=== PATIENT | male | born 1950 | race Caucasian/White ===

== ENCOUNTER 2017-01-23 08:38 | Inpatient (IN) | payer MEDICARE, OTHER ==
[~2017-01-23 08:38] MED LIST: Lidocaine 1%/Sod Bicarbonate in NS 8.4% 1 ML Syringe IV PRN; Midazolam 1 MG/ML 2 ML SDV ONE; Propofol 200 MG/20 ML SDV ONE; Sodium Chloride 0.9% 10 ML Syringe FLUSH PRN
--- NOTE | 2017-01-23 09:23 | PCM.PREANE ---
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 Respiratory: Reports: no symptoms Cardiovascular: Reports: no symptoms GI: Reports: no symptoms Other: Reports: thyroid problems - PHYSICAL ASSESSMENT HR: 71 O2 Sat by Pulse Oximetry: 98 RR: 16 BP: 145/78 Temp: 97.7 C ASA Class: 2 Mental Status: alert & oriented x3 Airway Class: Mallampati = 1 Dentition: Reports: normal dentition Thyro-Mental Finger Breadths: 3 Mouth Opening Finger Breadths: 3 ROM/Head Extension: full Respiratory Status: lungs clear to auscultation bilaterally Cardiovascular Status: regular rate & rhythm, normal S1, S2, no murmur, blood pressure WNL - LAB Values: Laboratory Last Values MRSA (PCR) Negative 01/11/17 16:10 - ALLERGIES Allergies/Adverse Reactions: Allergies Allergy/AdvReac Type Severity Reaction Status Date / Time No Known Allergies Allergy Verified 01/20/17 14:27 - ANESTHESIA PLAN Preop Beta Scar: Yes Beta Scar: Metoprolol Beta-Scar Last Dose Date: 01/23/17 Beta-Scar Last Dose Time: 06:30 Anesthesia Type Planned: spinal - ACKNOWLEDGEMENTS Pt an appropriate candidate for the planned anesthesia: Yes Alternatives and risks of anesthesia discussed w pt/guardian: Yes Pt/Guardian understands and agree with anesthesia plan: Yes PreAnesthesia Questionnaire HEENT History: Reports: None, Other (see below) Other HEENT History: L eye floater, L retinal tear, laser eye surgery Cardiovascular History: Reports: CAD, High cholesterol, Hypertension, PTCA, Stents (angioplasty 2007), Other (see below) Other Cardiovascular History: aortic stenosis and insufficiency Respiratory History: Reports: None Gastrointestinal History: Reports: Gastritis (past hx) Genitourinary History: Reports: Other (see below) Other Genitourinary History: renal colic, elevated PSA, prostate biopsy LOADER UNLOADER History: Reports: None Musculoskeletal History: Reports: Other (see below) Other Musculoskeletal History: r knee pain Neurological History: Reports: None Psychiatric History: Reports: None Endocrine/Metabolic History: Reports: Hypothyroidism Hematologic History: Reports: None Immunologic History: Reports: None Oncologic (Cancer) History: Reports: None Dermatologic History: Reports: None - Infectious Disease History Infectious Disease History: Reports: None - Past Surgical History Head Surgeries/Procedures: Reports: None Cardiovascular Surgical History: Reports: Other (see below) (angioplasty 2008 no complications with any previous anesthetics) GI Surgical History: Reports: Colonoscopy, Other (see below) Other GI Surgeries/Procedures: sigmoidoscopy Female Surgical History: Male Surgical History: Reports: Prostate Biopsy, Vasectomy Other Male Surgeries/Procedures: lithotripsy Musculoskeletal Surgical History: Reports: Other (see below) Other Musculoskeletal Surgeries/Procedures:: R knee arthroscopy - Past Imaging History Past Imaging History: Reports: None - SUBSTANCE USE Smoking Status *Q: Former Smoker Recreational Drug Use History: No - HOME MEDS Home Medications: Home Meds Aspirin/Calcium Carbonate/Mag [Aspirin Buffered 325 mg Tab] 162 mg PO DAILY 02/03 [History] Ergocalciferol (Vitamin D2) [Vitamin D] 1 tab PO DAILY 01/20/17 [History] Levothyroxine [Synthroid] 1 tab PO DAILY 01/20/17 [History] Losartan/Hydrochlorothiazide [Losartan-HCTZ 100-25 MG] 1 tab PO DAILY 01/20/17 [ History] Metoprolol Succinate 1 tab PO DAILY 01/20/17 [History] Nitroglycerin [Nitrostat] 1 tab SL ASDIRECTED PRN 01/20/17 [History] Turmeric Root Extract [Turmeric] 1 cap PO DAILY 01/20/17 [History] atorvaSTATin [Lipitor] 80 mg PO DAILY 01/20/17 [History] - CURRENT (IN HOUSE) MEDS Current Meds: Current Medications Bisacodyl (Dulcolax) 5 mg PO DAILY PRN PRN Reason: Constipation Morphine Sulfate 8 mg/Epinephrine HCl 0.3 mg/Cefuroxime Sodium 750 mg/Ketorolac Tromethamine 30 mg/Sodium Chloride 27.9 ml 0 mg .XX ONETIME ONE Stop: 01/23/17 10:16 Cyclobenzaprine HCl (Flexeril) 10 mg PO TID PRN PRN Reason: Spasms Diphenhydramine HCl (Benadryl) 25 mg IVPUSH Q4H PRN PRN Reason: Nausea Docusate Sodium (Colace) 100 mg PO BID [facility] Famotidine (Pepcid) 20 mg PO Q12H [facility] Lactated Ringer's (Ringers, Lactated) 1,000 mls @ 125 mls/hr IV ASDIRECTED [facility] [place] [place] Cefazolin Sodium/Dextrose 2 gm (/ Premix) 50 mls @ 100 mls/hr IV Q8H [facility] Stop: 01/23/17 23:14 Ketorolac Tromethamine (Toradol) 15 mg IVPUSH Q8H PRN PRN Reason: Pain Stop: 01/23/17 13:01 Lidocaine/Sodium Bicarbonate (Buffered Lidocaine 1% In Ns 8.4%) 0.25 ml IV ONETIME PRN PRN Reason: Prior to IV Start Stop: 01/23/17 18:00 Magnesium Hydroxide (Milk Of Magnesia) 30 ml PO BID PRN PRN Reason: Constipation Morphine Sulfate (Morphine) 2 mg IVPUSH Q2H PRN PRN Reason: Breakthrough Pain Multivitamins (Thera) 1 each PO WITHBREAKFAST [facility] Naloxone HCl (Narcan) 0.1 mg IVPUSH Q5M PRN PRN Reason: Oversedation Stop: 01/23/17 12:16 Ondansetron HCl (Zofran) 4 mg IVPUSH Q6H PRN PRN Reason: Nausea/Vomiting Oxycodone/Acetaminophen (Percocet 325-5 Mg) 1 - 2 tab PO Q4H PRN PRN Reason: Pain Rivaroxaban (Xarelto) 10 mg PO DAILY [facility] Senna (Senna) 8.6 mg PO BID PRN PRN Reason: Constipation Sodium Chloride (Saline Flush) 10 ml FLUSH ASDIRECTED PRN PRN Reason: Keep Vein Open Discontinued Medications Midazolam HCl (Versed 1 Mg/Ml) Confirm Administered Dose 2 mg .ROUTE .STK-MED ONE Stop: 01/23/17 08:22 Propofol (Diprivan 20 Ml) Confirm Administered Dose 200 mg .ROUTE .STK-MED ONE Stop: 01/23/17 08:20
[2017-01-23] MEDS: Lactated Ringers 1,000 ML IV SCH ×2 (09:30→12:18)
[2017-01-23] MEDS ORDERED: Morphine PF 10 MG/10 ML SDV ONE (09:39)
[2017-01-23] MEDS ORDERED: ceFAZolin 1 GM Vial ONE ×2 (09:40)
[2017-01-23] MEDS: Bupivacaine 0.25% 30 ML SDV ONE ×2 (10:35→11:16)
[2017-01-23] MEDS ORDERED: Ondansetron 4 MG/2 ML SDV IVPUSH PRN ×2 (10:35→13:00)
[2017-01-23] MEDS ORDERED: ePHEDrine 50 MG/ML SDV IVPUSH PRN (10:35)
[2017-01-23] MEDS: ceFAZolin 1 GM Vial ONE ×2 (10:36→11:11)
[2017-01-23] MEDS: Iodine/Sodium Iodide 2% Tincture 30 ML Bottle ONE ×2 (10:36→11:07)
[2017-01-23] MEDS: Morphine 8 MG, EPINEPHrine 0.3 MG, Cefuroxime 750 MG, Ketorolac 30 MG, Sodium Chloride ... ONE ×15 (10:37→19:33)
[2017-01-23] MEDS ORDERED: Propofol 200 MG/20 ML SDV ONE (10:43)
[2017-01-23] MEDS ORDERED: Ondansetron 4 MG/2 ML SDV ONE (10:52)
[2017-01-23] MEDS ORDERED: Lactated Ringers 1,000 ML ONE (10:55)
[2017-01-23] MEDS ORDERED: Nitroglycerin 0.4 MG Tab.SL SL PRN (11:13)
--- NOTE | 2017-01-23 11:34 | PCM.OPNOTE ---
- General Post-Op/Procedure Note Date of Surgery/Procedure: 01/23/17 Operative Procedure(s): right total knee arthroplasty Pre Op Diagnosis: right knee osteoarthrosis Post-Op Diagnosis: Same Anesthesia Technique: Local, MAC, Spinal Primary Surgeon: El López Anesthesia Provider: Martina Michelle Funeral Service Manager: Leanna Pena Funeral Service Manager: Neida Buck EBL in mLs: 150 Complications: None Condition: Good
[2017-01-23] MEDS ORDERED: HYDROmorphone 0.5 MG/0.5 ML Syringe IVPUSH PRN (11:45)
[2017-01-23] MEDS ORDERED: fentaNYL 100 MCG/2 ML SDV IVPUSH PRN (11:45)
--- NOTE | 2017-01-23 11:53 | PCM.POSTAN ---
POST ANESTHESIA ASSESSMENT - MENTAL STATUS Mental Status: alert, oriented - VITAL SIGNS Pulse Rate: 80 SaO2: 95 Resp Rate: 16 Blood Pressure: 115/45 Temperature: 98.0 C - RESPIRATORY Respiratory Status: respiratory rate WNL, airway patent, O2 saturation stable - CARDIOVASCULAR CV Status: pulse rate WNL, blood pressure stable - GASTROINTESTINAL GI Status: no symptoms - PAIN Pain Score: 0 - POST OP HYDRATION Hydration Status: adequate & stable
[2017-01-23] MEDS ORDERED: Naloxone 0.4 MG/ML SDV IVPUSH PRN (12:00)
--- NOTE | 2017-01-23 12:43 | CR ---
Right knee: AP and lateral views of the right knee were obtained. Comparison: No previous study. Knee prosthesis is seen. Components are aligned. Underlying bony structures are intact. Soft tissue air noted from the surgical procedure. Lucent line which is felt compatible with artifact noted on the lateral view within the proximal fibula. Impression: 1. Satisfactory radiographic appearance of recently placed right knee prosthesis. Diagnostic code #2
[2017-01-23] MEDS ORDERED: Ketorolac 15 MG/ML SDV IVPUSH PRN (13:00)
[2017-01-23] MEDS ORDERED: Morphine 2 MG/ML Syringe IVPUSH PRN (13:00)
[2017-01-23] MEDS ORDERED: diphenhydrAMINE 50 MG/ML SDV IVPUSH PRN (13:00)
--- NOTE | 2017-01-23 14:06 | PCM48HPAN ---
Post Anesthesia Note - EVALUATION WITHIN 48HRS OF ANESTHETIC Vital Signs in Normal Range: Yes Patient Participated in Evaluation: Yes Respiratory Function Stable: Yes Airway Patent: Yes Cardiovascular Function Stable: Yes Hydration Status Stable: Yes Pain Control Satisfactory: Yes Nausea and Vomiting Control Satisfactory: Yes Mental Status Recovered: Yes - COMMENTS/OBSERVATIONS Free Text/Narrative:: report obtained from RN as patient discharged from PACU
--- NOTE | 2017-01-23 14:11 | PCM.CONSN ---
- General Info Date of Service: 01/23/17 Admission Dx/Problem (Free Text): 66 year old male post op without significant pain or nausea. Has significant CAD history as noted Functional Status: Reports: pain controlled, tolerating diet, urinating - Review of Systems General: Reports: no symptoms HEENT: Reports: no symptoms Pulmonary: Reports: no symptoms Cardiovascular: Reports: no symptoms Gastrointestinal: Reports: No symptoms Genitourinary: Reports: no symptoms Musculoskeletal: Reports: no symptoms Skin: Reports: no symptoms Neurological: Reports: no symptoms Psychiatric: Reports: no symptoms - Patient Data Vitals - most recent: Last Vital Signs Temp 36.2 C 01/23/17 13:20 Pulse 55 L 01/23/17 13:20 Resp 16 01/23/17 13:20 BP 98/61 01/23/17 13:20 Pulse Ox 96 01/23/17 13:20 Weight - most recent: 77.111 kg I&O - last 24 hours: Intake & Output 01/22/17 01/23/17 01/23/17 22:59 06:59 14:59 Intake Total 450 Output Total 120 Balance 330 Med Orders - Current: Current Medications Bisacodyl (Dulcolax) 5 mg PO DAILY PRN PRN Reason: Constipation Cyclobenzaprine HCl (Flexeril) 10 mg PO TID PRN PRN Reason: Spasms Diphenhydramine HCl (Benadryl) 25 mg IVPUSH Q4H PRN PRN Reason: Nausea Last Admin: 01/23/17 09:29 Dose: 25 mg Docusate Sodium (Colace) 100 mg PO BID [facility] Famotidine (Pepcid) 20 mg PO Q12H [facility] Hydrochlorothiazide (Hydrochlorothiazide) 25 mg PO DAILY [facility] Cefazolin Sodium/Dextrose 2 gm (/ Premix) 50 mls @ 100 mls/hr IV Q8H [facility] Stop: 01/24/17 10:14 Levothyroxine Sodium (Synthroid) 100 mcg PO DAILY [facility] Losartan Potassium (Cozaar) 100 mg PO DAILY [facility] Magnesium Hydroxide (Milk Of Magnesia) 30 ml PO BID PRN PRN Reason: Constipation Metoprolol Succinate (Toprol Xl) 25 mg PO DAILY [facility] Morphine Sulfate (Morphine) 2 mg IVPUSH Q2H PRN PRN Reason: Breakthrough Pain Multivitamins (Thera) 1 each PO WITHBREAKFAST [facility] Nitroglycerin (Nitrostat) 0.4 mg SL ASDIRECTED PRN PRN Reason: Chest Pain Ondansetron HCl (Zofran) 4 mg IVPUSH Q6H PRN PRN Reason: Nausea/Vomiting Oxycodone/Acetaminophen (Percocet 325-5 Mg) 1 - 2 tab PO Q4H PRN PRN Reason: Pain Ergocalciferol ( Vitamin D2) [Vitamin D] 1 Tab 0 each PO DAILY [facility] Rivaroxaban (Xarelto) 10 mg PO DAILY [facility] Rosuvastatin Calcium (Crestor) 20 mg PO DAILY [facility] Senna (Senna) 8.6 mg PO BID PRN PRN Reason: Constipation Sodium Chloride (Saline Flush) 10 ml FLUSH ASDIRECTED PRN PRN Reason: Keep Vein Open Discontinued Medications Bupivacaine HCl (Marcaine 0.25%) Confirm Administered Dose 30 ml .ROUTE .STK- MED ONE Stop: 01/23/17 09:13 Last Admin: 01/23/17 11:16 Dose: 30 ml Cefazolin Sodium (Ancef) Confirm Administered Dose 2 gm .ROUTE .STK-MED ONE Stop: 01/23/17 09:13 Last Admin: 01/23/17 11:11 Dose: 2 gm Cefazolin Sodium (Ancef) Confirm Administered Dose 1 gm .ROUTE .STK-MED ONE Stop: 01/23/17 09:41 Cefazolin Sodium (Ancef) Confirm Administered Dose 1 gm .ROUTE .STK-MED ONE Stop: 01/23/17 09:41 Morphine Sulfate 8 mg/Epinephrine HCl 0.3 mg/Cefuroxime Sodium 750 mg/Ketorolac Tromethamine 30 mg/Sodium Chloride 27.9 ml 0 mg .XX ONETIME ONE Stop: 01/23/17 10:16 Last Admin: 01/23/17 11:15 Dose: 788.3 mg Ephedrine Sulfate (Ephedrine Sulfate) 5 mg IVPUSH ASDIRECTED PRN PRN Reason: Hypotension Stop: 01/23/17 18:00 Fentanyl (Sublimaze) 50 mcg IVPUSH Q5M PRN PRN Reason: Pain Stop: 01/23/17 12:01 Hydromorphone HCl (Dilaudid) 0.5 mg IVPUSH Q15M PRN PRN Reason: severe pain Stop: 01/23/17 12:01 Lactated Ringer's (Ringers, Lactated) 1,000 mls @ 125 mls/hr IV ASDIRECTED [facility] Last Admin: 01/23/17 12:18 Dose: 125 mls/hr Lactated Ringer's (Ringers, Lactated) Confirm Administered Dose 1,000 mls @ as directed .ROUTE .STK-MED ONE Stop: 01/23/17 10:56 Iodine (Iodine 2% Mild Tincture) Confirm Administered Dose 30 ml .ROUTE .STK- MED ONE Stop: 01/23/17 09:13 Last Admin: 01/23/17 11:07 Dose: 18 ml Ketorolac Tromethamine (Toradol) 15 mg IVPUSH Q8H PRN PRN Reason: Pain Stop: 01/23/17 13:01 Lidocaine/Sodium Bicarbonate (Buffered Lidocaine 1% In Ns 8.4%) 0.25 ml IV ONETIME PRN PRN Reason: Prior to IV Start Stop: 01/23/17 18:00 Midazolam HCl (Versed 1 Mg/Ml) Confirm Administered Dose 2 mg .ROUTE .STK-MED ONE Stop: 01/23/17 08:22 Morphine Sulfate (Duramorph Pf) Confirm Administered Dose 10 mg .ROUTE .STK-MED ONE Stop: 01/23/17 09:40 Naloxone HCl (Narcan) 0.1 mg IVPUSH Q5M PRN PRN Reason: Oversedation Stop: 01/23/17 12:16 Ondansetron HCl (Zofran) 4 mg IVPUSH ONETIME PRN PRN Reason: Nausea/Vomiting Stop: 01/23/17 18:00 Ondansetron HCl (Zofran) Confirm Administered Dose 4 mg .ROUTE .STK-MED ONE Stop: 01/23/17 10:53 Propofol (Diprivan 20 Ml) Confirm Administered Dose 200 mg .ROUTE .STK-MED ONE Stop: 01/23/17 08:20 Propofol (Diprivan 20 Ml) Confirm Administered Dose 200 mg .ROUTE .STK-MED ONE Stop: 01/23/17 10:44 Tranexamic Acid (Cyklokapron) Confirm Administered Dose 1,000 mg .ROUTE .STK- MED ONE Stop: 01/23/17 09:13 Last Admin: 01/23/17 11:23 Dose: 1,000 mg - Exam Quality Assessment: urine catheter, DVT prophylaxis General: alert, oriented, cooperative, no acute distress HEENT: Pupils equal, Pupils reactive, EOMI Neck: supple, trachea midline, no JVD Lungs: Normal respiratory effort Cardiovascular: regular rate, regular rhythm Abdomen: bowel sounds present, soft, no tenderness, no distension (Male) Exam: Deferred Back Exam: normal inspection Extremities: normal pulses Skin: warm Wound/Incisions: dressing dry and intact Neurological: no new focal deficit, normal speech Psy/Mental Status: alert, normal affect, normal mood Consult PN Assessment/Plan POD#: 0 Procedures: Procedures MR-STAPH DNA AMP PROBE (10/17/16) (1) Osteoarthritis SNOMED Code(s): 734799772 Code(s): M19.90 - UNSPECIFIED OSTEOARTHRITIS, UNSPECIFIED SITE (2) Hypertension SNOMED Code(s): 40408641 Code(s): I10 - ESSENTIAL (PRIMARY) HYPERTENSION (3) CAD (coronary artery disease), [place] coronary artery SNOMED Code(s): 6000005867139 Code(s): I25.10 - ATHSCL HEART DISEASE OF [place] CORONARY ARTERY W/O ANG PCTRS (4) Hypothyroid SNOMED Code(s): 87372120 Code(s): E03.9 - HYPOTHYROIDISM, UNSPECIFIED Problem List Initiated/Reviewed/Updated: Yes Plan: Impression: Spinal with Mac, post op right total knee arthroplasty Right knee osteoarthrits Chronic Mild Mild AI CAD/ PCI LAD with BMS ('08); RCA with JOSSELINE ('09) HTN Hypothyroidism Hyperlipidemia History of Gastritis Plan: Anti-emetics Pain meds DVT prophylaxis per ortho PT/OT recommendation post op Home meds
[2017-01-23] MEDS ORDERED: Cyclobenzaprine 10 MG Tab PO PRN (15:00)
[2017-01-23] MEDS ORDERED: Lactated Ringers 1,000 ML IV SCH (16:15)
[2017-01-23] MEDS: ceFAZolin 2 GM in Premix Bag 1 BAG IV SCH (17:42)
[2017-01-23] MEDS ORDERED: Bisacodyl 5 MG Tab PO PRN (18:00)
[2017-01-23] MEDS: Losartan 100 MG Tab PO SCH (18:02)
[2017-01-23] MEDS: Hydrochlorothiazide 25 MG Tab PO SCH (18:03)
[2017-01-23] MEDS ORDERED: Lactated Ringers 500 ML IV ONE (18:34)
[2017-01-23] MEDS: Acetaminophen/oxyCODONE 325-5 MG Tab PO PRN (18:42)
--- NOTE | 2017-01-23 19:46 | OR ---
DATE OF OPERATION: 01/23/2017 SURGEON: El López MD OPERATION PERFORMED: Right total knee arthroplasty. PREOPERATIVE DIAGNOSIS: Right knee osteoarthrosis. POSTOPERATIVE DIAGNOSIS: Right knee osteoarthrosis. ANESTHESIA: Local MAC with spinal. ANESTHESIA PROVIDER: Martina Michelle CRNA DOCTOR OF AUDIOLOGY: Leanna Buck ESTIMATED BLOOD LOSS: 150 mL. COMPLICATIONS: None. CONDITION: Stable. IMPLANTS: 1. Kanaranzi size 5 PS femur. 2. Valarie size 4 [place] tibial baseplate. 3. Kanaranzi size 9 mm PS X3 polyethylene. 4. Kanaranzi 32 x 10 mm asymmetric patella. DESCRIPTION OF PROCEDURE: The patient was identified in the preop holding area. Proper site was marked and identified by the surgeon. The patient was taken back to the operating theater. After adequate anesthesia, the patient's right lower extremity had a nonsterile tourniquet applied and it was then sterilely prepped and draped in the usual sterile fashion. OR timeout was performed. The patient received 2 g IV Ancef. At this time, right lower extremity was exsanguinated. Tourniquet was insufflated to 300 mmHg. Standard medial parapatellar incision was made. Medial parapatellar arthrotomy was created. Deep fibers of the MCL were raised and anterior fat pad was resected. At this time, attention was turned to the patella. Patella measured 24, it was resected to a 14 for a 32 x 10 mm patella. Drill holes were then drilled and found to be in adequate position. The drill was then drilled in the distal femur and the intramedullary distal femoral cutting guide was then placed. 8 mm was resected off the distal femur and was found to be an adequate resection. Sizing guide was placed. It was found to be a size 5 PS femur that was shown on the implant record at the beginning of this dictation. The drill holes were drilled for the epicondylar axis using Whitesides line and epicondyles as reference. At this time, the 4-in-1 cutting block was placed. An anterior posterior and anterior and posterior chamfer cuts were then completed. The correct size box cut was then placed and the box cut was completed and found to be an adequate resection. Attention was turned to the tibia. The posterior medial lateral retractors were placed. The extramedullary tibial guide was placed. It was placed in the old footprint of the ACL. It was aligned with the center of the ankle and 0 degrees of slope, 9 mm was then resected off the unaffected side. There was found to be an acceptable reduction. At this time, posterior osteophytes were removed along with medial and lateral meniscus. A trial implant was placed with a correct sized tibia that was mentioned at the beginning of the dictation. A 9 mm trial spacer and 9 mm polyethylene was then placed. The patient's knee was brought through range of motion. The patella was tracking centrally and was stable to varus and valgus stress. Alignment was found to be roughly at 0 degrees. At this time, cement was mixed on the back table. The tibia was stamped and drilled in proper rotation. All cut surfaces were irrigated with pulse lavage irrigation with Ancef and then completely dried. Once this was completed, then the cement was ready. The universal tibial base plate was cemented in place. Next, the 5 PS femur cemented into place and the PS X3 polyethylene was placed. The patient's knee was brought into full extension. Excess cement was removed. The patella was then cemented in place at this time. Tourniquet was deflated. One liter dilute Betadine solution was irrigated through the knee along with 3 L of pulse lavage irrigation with Ancef. Periarticular injection was then completed. The patient's knee was brought through a range of motion. Once the cement had time to set up and it was found to be stable to varus valgus stress, the patella was tracking centrally with full range of motion. At this time, a #2 barbed suture was used for closure of the medial parapatellar arthrotomy. Topical tranexamic acid was placed. 2-0 Vicryl was used subcutaneously, a running 3-0 Monocryl was used subcuticularly. The patient tolerated the procedure well and was sent to the PACU in stable condition. IRA /[id number] ELMER
[2017-01-23] MEDS: Famotidine 20 MG Tab PO SCH (20:10)
[2017-01-23] MEDS: Docusate Sodium 100 MG Cap PO SCH (20:10)
[2017-01-23] MEDS ORDERED: Magnesium Hydroxide 400 MG/5 ML Susp 30 ML Cup PO PRN (21:00)
[2017-01-23] MEDS ORDERED: Sennosides 8.6 MG Tab PO PRN (21:00)
[2017-01-23] MEDS: Tamsulosin 0.4 MG Cap.ER PO SCH (21:04)
[2017-01-24] MEDS: ceFAZolin 2 GM in Premix Bag 1 BAG IV SCH ×2 (00:47→09:04)
[2017-01-24] MEDS: Acetaminophen/oxyCODONE 325-5 MG Tab PO PRN ×4 (02:24→15:48)
[2017-01-24] MEDS ORDERED: Multivitamins,Therapeutic Tab PO SCH (07:00)
[2017-01-24] MEDS: Tamsulosin 0.4 MG Cap.ER PO SCH (08:57)
[2017-01-24] MEDS: Hydrochlorothiazide 25 MG Tab PO SCH (08:58)
[2017-01-24] MEDS: Losartan 100 MG Tab PO SCH (08:58)
[2017-01-24] MEDS: Docusate Sodium 100 MG Cap PO SCH (08:59)
[2017-01-24] MEDS: Famotidine 20 MG Tab PO SCH (08:59)
[2017-01-24] MEDS ORDERED: Rivaroxaban 10 MG Tab PO SCH (09:00)
[2017-01-24] MEDS ORDERED: Metoprolol Succinate 25 MG Tab.ER PO SCH (09:00)
[2017-01-24] MEDS ORDERED: Levothyroxine 100 MCG Tab PO SCH (09:00)
[2017-01-24] MEDS ORDERED: Rosuvastatin 10 MG Tab PO SCH (09:00)
[2017-01-24] MEDS ORDERED: ERGOCALCIFEROL PO SCH (09:00)
[2017-01-24 11:42] VITALS: BP 124/65
--- NOTE | 2017-01-24 13:02 | PCM.CONSN ---
- General Info Date of Service: 01/24/17 Admission Dx/Problem (Free Text): POD #[address] López Doing well; pain under good control; up and moving with PT Urinary retention requiring straight cath x 1, flomax started, fluid bolus given last evening VSS Labs stable; hgb 10.9 today Plans for dc home later today Functional Status: Reports: pain controlled, tolerating diet, ambulating. Denies: urinating (retention/ required straight cath x 1 today) - Review of Systems General: Reports: no symptoms HEENT: Reports: no symptoms Pulmonary: Reports: no symptoms Cardiovascular: Reports: no symptoms Gastrointestinal: Reports: No symptoms Genitourinary: Reports: retention Musculoskeletal: Reports: leg pain Skin: Reports: no symptoms Neurological: Reports: no symptoms Psychiatric: Reports: no symptoms - Patient Data Vitals - most recent: Last Vital Signs Temp 99.5 F 01/24/17 11:04 Pulse 79 01/24/17 11:04 Resp 16 01/24/17 11:04 BP 124/65 01/24/17 11:04 Pulse Ox 98 01/24/17 11:04 Weight - most recent: 185 lb 1.6 oz I&O - last 24 hours: Intake & Output 01/23/17 01/24/17 01/24/17 22:59 06:59 14:59 Intake Total 1790 950 200 Output Total 102 200 850 Balance 1688 750 -650 Lab Results last 24 hrs: Laboratory Results - last 24 hr 01/24/17 01/24/17 Range/Units 05:54 05:54 WBC 8.18 (4.23-9.07) K/mm3 RBC 3.95 L (4.63-6.08) M/mm3 Hgb 10.9 L (13.7-17.5) gm/L Hct 34.3 L (40.1-51.0) % MCV 86.8 (79.0-92.2) fl MCH 27.6 (25.7-32.2) pg MCHC 31.8 L (32.2-35.5) g/dl RDW Std Deviation 41.8 (35.1-43.9) fL Plt Count 159 L (163-337) K/mm3 MPV 10.5 (9.4-12.3) fl Neut % (Auto) 69.7 H (34.0-67.9) % Lymph % (Auto) 13.3 L (21.8-53.1) % [place] % (Auto) 13.0 H (5.3-12.2) % Eos % (Auto) 3.5 (0.8-7.0) Baso % (Auto) 0.4 (0.1-1.2) % Neut # 5.70 H (1.78-5.38) K/mm3 Lymph # 1.09 L (1.32-3.57) K/mm3 [place] # 1.06 H (0.30-0.82) K/mm3 Eos # 0.29 (0.04-0.54) K/mm3 Baso # 0.03 (0.01-0.08) K/mm3 Sodium 136 (136-145) mEq/L Potassium 4.5 (3.5-5.1) mEq/L Chloride 103 (98-107) mEq/L Carbon Dioxide 28 (21-32) mEq/L Anion Gap 9.5 (5-15) BUN 22 H (7-18) mg/dL Creatinine 0.9 (0.7-1.3) mg/dL Est Cr Clr Drug Dosing 71.87 mL/min Estimated GFR (MDRD) > 60 (>60) mL/min BUN/Creatinine Ratio 24.4 H (14-18) Glucose 104 (80-115) mg/dL Calcium 8.4 L (8.5-10.1) mg/dL Total Bilirubin 0.6 (0.2-1.0) mg/dL AST 21 (15-37) U/L ALT 22 (16-63) U/L Alkaline Phosphatase 58 (46-116) U/L Total Protein 5.7 L (6.4-8.2) g/dl Albumin 2.9 L (3.4-5.0) g/dl Globulin 2.8 gm/dL Albumin/Globulin Ratio 1.0 (1-2) Med Orders - Current: Current Medications Bisacodyl (Dulcolax) 5 mg PO DAILY PRN PRN Reason: Constipation Cyclobenzaprine HCl (Flexeril) 10 mg PO TID PRN PRN Reason: Spasms Diphenhydramine HCl (Benadryl) 25 mg IVPUSH Q4H PRN PRN Reason: Nausea Last Admin: 03/06/17 09:29 Dose: 25 mg Docusate Sodium (Colace) 100 mg PO BID [facility] Last Admin: 01/24/17 08:59 Dose: 100 mg Famotidine (Pepcid) 20 mg PO Q12H [facility] Last Admin: 01/24/17 08:59 Dose: 20 mg Hydrochlorothiazide (Hydrochlorothiazide) 25 mg PO DAILY [facility] Last Admin: 01/24/17 08:58 Dose: 25 mg Levothyroxine Sodium (Synthroid) 100 mcg PO DAILY [facility] Last Admin: 01/24/17 08:58 Dose: 100 mcg Losartan Potassium (Cozaar) 100 mg PO DAILY [facility] Last Admin: 01/24/17 08:58 Dose: 100 mg Magnesium Hydroxide (Milk Of Magnesia) 30 ml PO BID PRN PRN Reason: Constipation Metoprolol Succinate (Toprol Xl) 25 mg PO DAILY [facility] Last Admin: 01/24/17 08:56 Dose: 25 mg Morphine Sulfate (Morphine) 2 mg IVPUSH Q2H PRN PRN Reason: Breakthrough Pain Multivitamins (Thera) 1 each PO WITHBREAKFAST [facility] Last Admin: 01/24/17 07:43 Dose: 1 each Nitroglycerin (Nitrostat) 0.4 mg SL ASDIRECTED PRN PRN Reason: Chest Pain Ondansetron HCl (Zofran) 4 mg IVPUSH Q6H PRN PRN Reason: Nausea/Vomiting Oxycodone/Acetaminophen (Percocet 325-5 Mg) 1 - 2 tab PO Q4H PRN PRN Reason: Pain Last Admin: 01/24/17 11:38 Dose: 2 tab Ergocalciferol ( Vitamin D2) [Vitamin D] 1 Tab 0 each PO DAILY [facility] Last Admin: 01/24/17 09:19 Dose: Not Given Rivaroxaban (Xarelto) 10 mg PO DAILY [facility] Last Admin: 01/24/17 08:57 Dose: 10 mg Rosuvastatin Calcium (Crestor) 20 mg PO DAILY [facility] Last Admin: 01/24/17 09:19 Dose: Not Given Senna (Senna) 8.6 mg PO BID PRN PRN Reason: Constipation Sodium Chloride (Saline Flush) 10 ml FLUSH ASDIRECTED PRN PRN Reason: Keep Vein Open Tamsulosin HCl (Flomax) 0.4 mg PO DAILY [facility] Last Admin: 01/24/17 08:57 Dose: 0.4 mg Discontinued Medications Bupivacaine HCl (Marcaine 0.25%) Confirm Administered Dose 30 ml .ROUTE .STK- MED ONE Stop: 01/23/17 09:13 Last Admin: 01/23/17 11:16 Dose: 30 ml Cefazolin Sodium (Ancef) Confirm Administered Dose 2 gm .ROUTE .STK-MED ONE Stop: 01/23/17 09:13 Last Admin: 01/23/17 11:11 Dose: 2 gm Cefazolin Sodium (Ancef) Confirm Administered Dose 1 gm .ROUTE .STK-MED ONE Stop: 01/23/17 09:41 Cefazolin Sodium (Ancef) Confirm Administered Dose 1 gm .ROUTE .STK-MED ONE Stop: 01/23/17 09:41 Morphine Sulfate 8 mg/Epinephrine HCl 0.3 mg/Cefuroxime Sodium 750 mg/Ketorolac Tromethamine 30 mg/Sodium Chloride 27.9 ml 0 mg .XX ONETIME ONE Stop: 01/23/17 10:16 Last Admin: 01/23/17 19:33 Dose: Not Given Ephedrine Sulfate (Ephedrine Sulfate) 5 mg IVPUSH ASDIRECTED PRN PRN Reason: Hypotension Stop: 01/23/17 18:00 Fentanyl (Sublimaze) 50 mcg IVPUSH Q5M PRN PRN Reason: Pain Stop: 01/23/17 12:01 Hydromorphone HCl (Dilaudid) 0.5 mg IVPUSH Q15M PRN PRN Reason: severe pain Stop: 01/23/17 12:01 Lactated Ringer's (Ringers, Lactated) 1,000 mls @ 125 mls/hr IV ASDIRECTED [facility] Last Infusion: 01/23/17 17:58 Dose: 999 mls/hr Cefazolin Sodium/Dextrose 2 gm (/ Premix) 50 mls @ 100 mls/hr IV Q8H [facility] Stop: 01/24/17 10:14 Last Admin: 01/24/17 09:04 Dose: 100 mls/hr Lactated Ringer's (Ringers, Lactated) Confirm Administered Dose 1,000 mls @ as directed .ROUTE .STK-MED ONE Stop: 01/23/17 10:56 Lactated Ringer's (Ringers, Lactated) 1,000 mls @ 125 mls/hr IV ASDIRECTED [facility] Stop: 01/23/17 20:16 Last Admin: 01/23/17 18:10 Dose: 999 mls/hr Lactated Ringer's (Ringers, Lactated) 500 mls @ 999 mls/hr IV .BOLUS ONE Stop: 01/23/17 19:04 Last Admin: 01/23/17 18:43 Dose: Not Given Iodine (Iodine 2% Mild Tincture) Confirm Administered Dose 30 ml .ROUTE .STK- MED ONE Stop: 01/23/17 09:13 Last Admin: 01/23/17 11:07 Dose: 18 ml Ketorolac Tromethamine (Toradol) 15 mg IVPUSH Q8H PRN PRN Reason: Pain Stop: 01/23/17 13:01 Lidocaine/Sodium Bicarbonate (Buffered Lidocaine 1% In Ns 8.4%) 0.25 ml IV ONETIME PRN PRN Reason: Prior to IV Start Stop: 01/23/17 18:00 Midazolam HCl (Versed 1 Mg/Ml) Confirm Administered Dose 2 mg .ROUTE .STK-MED ONE Stop: 01/23/17 08:22 Morphine Sulfate (Duramorph Pf) Confirm Administered Dose 10 mg .ROUTE .STK-MED ONE Stop: 01/23/17 09:40 Naloxone HCl (Narcan) 0.1 mg IVPUSH Q5M PRN PRN Reason: Oversedation Stop: 01/23/17 12:16 Ondansetron HCl (Zofran) 4 mg IVPUSH ONETIME PRN PRN Reason: Nausea/Vomiting Stop: 01/23/17 18:00 Ondansetron HCl (Zofran) Confirm Administered Dose 4 mg .ROUTE .STK-MED ONE Stop: 01/23/17 10:53 Propofol (Diprivan 20 Ml) Confirm Administered Dose 200 mg .ROUTE .STK-MED ONE Stop: 01/23/17 08:20 Propofol (Diprivan 20 Ml) Confirm Administered Dose 200 mg .ROUTE .STK-MED ONE Stop: 01/23/17 10:44 Tranexamic Acid (Cyklokapron) Confirm Administered Dose 1,000 mg .ROUTE .STK- MED ONE Stop: 01/23/17 09:13 Last Admin: 01/23/17 11:23 Dose: 1,000 mg - Exam Quality Assessment: DVT prophylaxis General: alert, oriented, cooperative, no acute distress HEENT: Pupils equal, Pupils reactive, EOMI, Mucous membr. moist/pink Neck: supple Lungs: Clear to auscultation, Normal respiratory effort Cardiovascular: regular rate, regular rhythm Abdomen: bowel sounds present, soft, no tenderness, no distension (Male) Exam: Deferred Extremities: other (ice to rt knee; SCD's bilat) Peripheral Pulses: 1+: dorsalis pedis (L), dorsalis pedis (R) Skin: warm, dry Neurological: no new focal deficit Psy/Mental Status: alert, normal affect, normal mood Consult PN Assessment/Plan POD#: 1 Procedures: Procedures MR-STAPH DNA AMP PROBE (10/17/16) Problem List Initiated/Reviewed/Updated: Yes My Orders last 24 hours: My Active Orders 01/24/17 08:15 Communication Order [RC] ASDIRECTED Plan: POD #[address] López -pain mgnt and DVT prophylax per primary team/Ortho -PT/OT- doing well -VSS -labs stable; hgb 10.9 Urinary retention postoperatively -rec'd fluid blous last evening -Flomax started -HCTZ x 1 dose given -Cont close monitoring -If able to void can dc home later today Other chronic medical problems stable and no concerns at this time; cont all usual home meds at discharge.
--- NOTE | 2017-01-24 16:48 | PCM.SURGPN ---
- General Info Date of Service: 01/24/17 POD#: 1 Functional Status: Reports: pain controlled, tolerating diet, ambulating, other (The pt was unable to fully void today. ) - Patient Data Vitals - most recent: Last Vital Signs Temp 99.5 F 01/24/17 11:04 Pulse 79 01/24/17 11:04 Resp 16 01/24/17 11:04 BP 124/65 01/24/17 11:04 Pulse Ox 98 01/24/17 11:04 Weight - most recent: 185 lb 1.6 oz I&O - last 24 hours: Intake & Output 01/24/17 01/24/17 01/24/17 06:59 14:59 22:59 Intake Total 950 200 Output Total 200 850 Balance 750 -650 Lab Results last 24 hrs: Laboratory Results - last 24 hr 01/24/17 01/24/17 Range/Units 05:54 05:54 WBC 8.18 (4.23-9.07) K/mm3 RBC 3.95 L (4.63-6.08) M/mm3 Hgb 10.9 L (13.7-17.5) gm/L Hct 34.3 L (40.1-51.0) % MCV 86.8 (79.0-92.2) fl MCH 27.6 (25.7-32.2) pg MCHC 31.8 L (32.2-35.5) g/dl RDW Std Deviation 41.8 (35.1-43.9) fL Plt Count 159 L (163-337) K/mm3 MPV 10.5 (9.4-12.3) fl Neut % (Auto) 69.7 H (34.0-67.9) % Lymph % (Auto) 13.3 L (21.8-53.1) % [place] % (Auto) 13.0 H (5.3-12.2) % Eos % (Auto) 3.5 (0.8-7.0) Baso % (Auto) 0.4 (0.1-1.2) % Neut # 5.70 H (1.78-5.38) K/mm3 Lymph # 1.09 L (1.32-3.57) K/mm3 [place] # 1.06 H (0.30-0.82) K/mm3 Eos # 0.29 (0.04-0.54) K/mm3 Baso # 0.03 (0.01-0.08) K/mm3 Sodium 136 (136-145) mEq/L Potassium 4.5 (3.5-5.1) mEq/L Chloride 103 (98-107) mEq/L Carbon Dioxide 28 (21-32) mEq/L Anion Gap 9.5 (5-15) BUN 22 H (7-18) mg/dL Creatinine 0.9 (0.7-1.3) mg/dL Est Cr Clr Drug Dosing 71.87 mL/min Estimated GFR (MDRD) > 60 (>60) mL/min BUN/Creatinine Ratio 24.4 H (14-18) Glucose 104 (80-115) mg/dL Calcium 8.4 L (8.5-10.1) mg/dL Total Bilirubin 0.6 (0.2-1.0) mg/dL AST 21 (15-37) U/L ALT 22 (16-63) U/L Alkaline Phosphatase 58 (46-116) U/L Total Protein 5.7 L (6.4-8.2) g/dl Albumin 2.9 L (3.4-5.0) g/dl Globulin 2.8 gm/dL Albumin/Globulin Ratio 1.0 (1-2) Med Orders - Current: Current Medications Bisacodyl (Dulcolax) 5 mg PO DAILY PRN PRN Reason: Constipation Cyclobenzaprine HCl (Flexeril) 10 mg PO TID PRN PRN Reason: Spasms Diphenhydramine HCl (Benadryl) 25 mg IVPUSH Q4H PRN PRN Reason: Nausea Last Admin: 01/23/17 09:29 Dose: 25 mg Docusate Sodium (Colace) 100 mg PO BID [facility] Last Admin: 01/24/17 08:59 Dose: 100 mg Famotidine (Pepcid) 20 mg PO Q12H [facility] Last Admin: 01/24/17 08:59 Dose: 20 mg Hydrochlorothiazide (Hydrochlorothiazide) 25 mg PO DAILY [facility] Last Admin: 01/24/17 08:58 Dose: 25 mg Levothyroxine Sodium (Synthroid) 100 mcg PO DAILY [facility] Last Admin: 01/24/17 08:58 Dose: 100 mcg Losartan Potassium (Cozaar) 100 mg PO DAILY [facility] Last Admin: 01/24/17 08:58 Dose: 100 mg Magnesium Hydroxide (Milk Of Magnesia) 30 ml PO BID PRN PRN Reason: Constipation Metoprolol Succinate (Toprol Xl) 25 mg PO DAILY [facility] Last Admin: 01/24/17 08:56 Dose: 25 mg Morphine Sulfate (Morphine) 2 mg IVPUSH Q2H PRN PRN Reason: Breakthrough Pain Multivitamins (Thera) 1 each PO WITHBREAKFAST [facility] Last Admin: 01/24/17 07:43 Dose: 1 each Nitroglycerin (Nitrostat) 0.4 mg SL ASDIRECTED PRN PRN Reason: Chest Pain Ondansetron HCl (Zofran) 4 mg IVPUSH Q6H PRN PRN Reason: Nausea/Vomiting Oxycodone/Acetaminophen (Percocet 325-5 Mg) 1 - 2 tab PO Q4H PRN PRN Reason: Pain Last Admin: 01/24/17 15:48 Dose: 2 tab Ergocalciferol ( Vitamin D2) [Vitamin D] 1 Tab 0 each PO DAILY [facility] Last Admin: 01/24/17 09:19 Dose: Not Given Rivaroxaban (Xarelto) 10 mg PO DAILY [facility] Last Admin: 01/24/17 08:57 Dose: 10 mg Rosuvastatin Calcium (Crestor) 20 mg PO DAILY [facility] Last Admin: 01/24/17 09:19 Dose: Not Given Senna (Senna) 8.6 mg PO BID PRN PRN Reason: Constipation Sodium Chloride (Saline Flush) 10 ml FLUSH ASDIRECTED PRN PRN Reason: Keep Vein Open Tamsulosin HCl (Flomax) 0.4 mg PO DAILY [facility] Last Admin: 01/24/17 08:57 Dose: 0.4 mg Discontinued Medications Bupivacaine HCl (Marcaine 0.25%) Confirm Administered Dose 30 ml .ROUTE .STK- MED ONE Stop: 01/23/17 09:13 Last Admin: 01/23/17 11:16 Dose: 30 ml Cefazolin Sodium (Ancef) Confirm Administered Dose 2 gm .ROUTE .STK-MED ONE Stop: 01/23/17 09:13 Last Admin: 01/23/17 11:11 Dose: 2 gm Cefazolin Sodium (Ancef) Confirm Administered Dose 1 gm .ROUTE .STK-MED ONE Stop: 01/23/17 09:41 Cefazolin Sodium (Ancef) Confirm Administered Dose 1 gm .ROUTE .STK-MED ONE Stop: 01/23/17 09:41 Morphine Sulfate 8 mg/Epinephrine HCl 0.3 mg/Cefuroxime Sodium 750 mg/Ketorolac Tromethamine 30 mg/Sodium Chloride 27.9 ml 0 mg .XX ONETIME ONE Stop: 01/23/17 10:16 Last Admin: 01/23/17 19:33 Dose: Not Given Ephedrine Sulfate (Ephedrine Sulfate) 5 mg IVPUSH ASDIRECTED PRN PRN Reason: Hypotension Stop: 01/23/17 18:00 Fentanyl (Sublimaze) 50 mcg IVPUSH Q5M PRN PRN Reason: Pain Stop: 01/23/17 12:01 Hydromorphone HCl (Dilaudid) 0.5 mg IVPUSH Q15M PRN PRN Reason: severe pain Stop: 01/23/17 12:01 Lactated Ringer's (Ringers, Lactated) 1,000 mls @ 125 mls/hr IV ASDIRECTED [facility] Last Infusion: 01/23/17 17:58 Dose: 999 mls/hr Cefazolin Sodium/Dextrose 2 gm (/ Premix) 50 mls @ 100 mls/hr IV Q8H [facility] Stop: 01/24/17 10:14 Last Admin: 01/24/17 09:04 Dose: 100 mls/hr Lactated Ringer's (Ringers, Lactated) Confirm Administered Dose 1,000 mls @ as directed .ROUTE .STK-MED ONE Stop: 01/23/17 10:56 Lactated Ringer's (Ringers, Lactated) 1,000 mls @ 125 mls/hr IV ASDIRECTED [facility] Stop: 01/23/17 20:16 Last Admin: 01/23/17 18:10 Dose: 999 mls/hr Lactated Ringer's (Ringers, Lactated) 500 mls @ 999 mls/hr IV .BOLUS ONE Stop: 01/23/17 19:04 Last Admin: 01/23/17 18:43 Dose: Not Given Iodine (Iodine 2% Mild Tincture) Confirm Administered Dose 30 ml .ROUTE .STK- MED ONE Stop: 01/23/17 09:13 Last Admin: 01/23/17 11:07 Dose: 18 ml Ketorolac Tromethamine (Toradol) 15 mg IVPUSH Q8H PRN PRN Reason: Pain Stop: 01/23/17 13:01 Lidocaine/Sodium Bicarbonate (Buffered Lidocaine 1% In Ns 8.4%) 0.25 ml IV ONETIME PRN PRN Reason: Prior to IV Start Stop: 01/23/17 18:00 Midazolam HCl (Versed 1 Mg/Ml) Confirm Administered Dose 2 mg .ROUTE .STK-MED ONE Stop: 01/23/17 08:22 Morphine Sulfate (Duramorph Pf) Confirm Administered Dose 10 mg .ROUTE .STK-MED ONE Stop: 01/23/17 09:40 Naloxone HCl (Narcan) 0.1 mg IVPUSH Q5M PRN PRN Reason: Oversedation Stop: 01/23/17 12:16 Ondansetron HCl (Zofran) 4 mg IVPUSH ONETIME PRN PRN Reason: Nausea/Vomiting Stop: 01/23/17 18:00 Ondansetron HCl (Zofran) Confirm Administered Dose 4 mg .ROUTE .STK-MED ONE Stop: 01/23/17 10:53 Propofol (Diprivan 20 Ml) Confirm Administered Dose 200 mg .ROUTE .STK-MED ONE Stop: 01/23/17 08:20 Propofol (Diprivan 20 Ml) Confirm Administered Dose 200 mg .ROUTE .STK-MED ONE Stop: 01/23/17 10:44 Tranexamic Acid (Cyklokapron) Confirm Administered Dose 1,000 mg .ROUTE .STK- MED ONE Stop: 01/23/17 09:13 Last Admin: 01/23/17 11:23 Dose: 1,000 mg - Exam Wound/Incisions: dressing dry and intact General: alert, cooperative, no acute distress Lungs: Normal respiratory effort Extremities: normal pulses, no calf tenderness, other (Independent SLR RLE. NVS intact for RLE. Noris's negative. ) - Problem List Review Problem List Initiated/Reviewed/Updated: Yes - My Orders Last 24 Hours: Active Orders 24 hr Category Date Time Status Communication Order [RC] ASDIRECTED Care 01/24/17 08:15 Active Insert [place] Catheter [Insert Urinary Catheter] [OM.PC] Care 01/24/17 14:45 Ordered Q24H Ready for Discharge [RC] PER UNIT ROUTINE Care 03/07/17 14:16 Active Urinary Catheter Assessment [RC] ASDIRECTED Care 01/24/17 14:36 Active Regular Diet [DIET] Diet 01/23/17 Dinner Active Bisacodyl [Dulcolax] Med 01/23/17 18:00 Active 5 mg PO DAILY PRN Docusate Sodium [Colace] Med 01/23/17 21:00 Active 100 mg PO BID Famotidine [Pepcid] Med 01/23/17 21:00 Active 20 mg PO Q12H Hydrochlorothiazide Med 01/23/17 18:00 Active 25 mg PO DAILY Levothyroxine [Synthroid] Med 01/24/17 09:00 Active 100 mcg PO DAILY Losartan [Cozaar] Med 01/23/17 18:00 Active 100 mg PO DAILY Magnesium Hydroxide [Milk of Magnesia] Med 01/23/17 21:00 Active 30 ml PO BID PRN Metoprolol Succinate [Toprol XL] Med 01/24/17 09:00 Active 25 mg PO DAILY Multivitamins,Therapeutic [Thera] Med 01/24/17 07:00 Active 1 each PO WITHBREAKFAST Patient's Own Medication [Ptom] Med 01/24/17 09:00 Active 0 each PO DAILY Rivaroxaban [Xarelto] Med 01/24/17 09:00 Active 10 mg PO DAILY Rosuvastatin [Crestor] Med 01/24/17 09:00 Active 20 mg PO DAILY Sennosides [Senna] Med 01/23/17 21:00 Active 8.6 mg PO BID PRN Tamsulosin [Flomax] Med 01/23/17 20:30 Active 0.4 mg PO DAILY Medication Orders Bisacodyl (Dulcolax) 5 mg PO DAILY PRN PRN Reason: Constipation Cyclobenzaprine HCl (Flexeril) 10 mg PO TID PRN PRN Reason: Spasms Diphenhydramine HCl (Benadryl) 25 mg IVPUSH Q4H PRN PRN Reason: Nausea Last Admin: 01/23/17 09:29 Dose: 25 mg Docusate Sodium (Colace) 100 mg PO BID [facility] Last Admin: 01/24/17 08:59 Dose: 100 mg Admin: 01/23/17 20:10 Dose: 100 mg Famotidine (Pepcid) 20 mg PO Q12H [facility] Last Admin: 01/24/17 08:59 Dose: 20 mg Admin: 01/23/17 20:10 Dose: 20 mg Hydrochlorothiazide (Hydrochlorothiazide) 25 mg PO DAILY [facility] Last Admin: 01/24/17 08:58 Dose: 25 mg Admin: 01/23/17 18:03 Dose: Not Given Levothyroxine Sodium (Synthroid) 100 mcg PO DAILY [facility] Last Admin: 01/24/17 08:58 Dose: 100 mcg Losartan Potassium (Cozaar) 100 mg PO DAILY [facility] Last Admin: 01/24/17 08:58 Dose: 100 mg Admin: 01/23/17 18:02 Dose: Not Given Magnesium Hydroxide (Milk Of Magnesia) 30 ml PO BID PRN PRN Reason: Constipation Metoprolol Succinate (Toprol Xl) 25 mg PO DAILY [facility] Last Admin: 01/24/17 08:56 Dose: 25 mg Morphine Sulfate (Morphine) 2 mg IVPUSH Q2H PRN PRN Reason: Breakthrough Pain Multivitamins (Thera) 1 each PO WITHBREAKFAST [facility] Last Admin: 01/24/17 07:43 Dose: 1 each Nitroglycerin (Nitrostat) 0.4 mg SL ASDIRECTED PRN PRN Reason: Chest Pain Ondansetron HCl (Zofran) 4 mg IVPUSH Q6H PRN PRN Reason: Nausea/Vomiting Oxycodone/Acetaminophen (Percocet 325-5 Mg) 1 - 2 tab PO Q4H PRN PRN Reason: Pain Last Admin: 01/24/17 15:48 Dose: 2 tab Admin: 01/24/17 11:38 Dose: 2 tab Admin: 01/24/17 07:43 Dose: 1 tab Admin: 01/24/17 02:24 Dose: 1 tab Admin: 01/23/17 18:42 Dose: 1 tab Ergocalciferol ( Vitamin D2) [Vitamin D] 1 Tab 0 each PO DAILY [facility] Last Admin: 01/24/17 09:19 Dose: Not Given Rivaroxaban (Xarelto) 10 mg PO DAILY [facility] Last Admin: 01/24/17 08:57 Dose: 10 mg Rosuvastatin Calcium (Crestor) 20 mg PO DAILY [facility] Last Admin: 01/24/17 09:19 Dose: Not Given Senna (Senna) 8.6 mg PO BID PRN PRN Reason: Constipation Sodium Chloride (Saline Flush) 10 ml FLUSH ASDIRECTED PRN PRN Reason: Keep Vein Open Tamsulosin HCl (Flomax) 0.4 mg PO DAILY [facility] Last Admin: 01/24/17 08:57 Dose: 0.4 mg Admin: 01/23/17 21:04 Dose: 0.4 mg - Assessment Assessment (Free Text/Narrative):: POD#1 - right TKA - Plan Plan (Free Text/Narrative):: 1. The pt has been unable to void. Flomax ordered and pt d/c to home with [place] catheter. The pt will be on Marcrobid BID while catheter is in place and will f/u with PCP in 1-2 days. 2. The pt progressed very well with P.T. and O.T. 3. Percocet for pain management at home. 4. Hgb 10.9 today. The pt's case was discussed with Dr. López and MD assisted with development of plan of care.
--- NOTE | 2017-01-24 17:02 | PCM.DCSUM1 ---
Discharge Summary - Hospital Course Brief History: Linus is a 66 yo male who underwent right TKA with Dr. López on . The procedure was completed under spinal anesthesia. The pt tolerated the procedure well and was admitted to the [facility] under Medical-Surgical status. Medical management was provided by the Hospitalist service. The pt's Hospital course was remarkable for urinary retention. The pt was started on Flomax. Due to inability to urinate, a preston catheter was placed and the pt was allowed to discharge to home. The pt will follow-up with his primary care provider in 1-2 days and was prescribed Macrobid 100mg BID while catheter is in place. The pt's Hgb on POD#1 was 10.9. On POD#1, Xarelto was initiated for VTE prophylaxis. SCDs and TEDs were also ordered. A Mepilex dressing was placed at the incision site at the time of surgery and remained clean and dry. The pt participated in P.T. and O.T. and progressed very well. On POD#1, the pt was deemed appropriate to discharge to home with his . - Discharge Data Discharge Date: 01/24/17 Discharge Disposition: Home, Self-Care 01 Condition: Good - Patient Summary/Data Operative Procedure(s) Performed: right total knee arthroplasty Consults: Consultations 01/23/17 06:45 Consult to Case Management [CONS] Routine Consult to Physician [CONS] Routine OT Evaluation and Treatment [CONS] Routine 01/23/17 06:52 PT Evaluation and Treatment [CONS] Routine - Patient Instructions Diet: Usual Diet as Tolerated Activity: Apply Ice, As Tolerated, Elevate Extremity, Full Weight Bearing Driving: Do Not Drive Showering/Bathing: May Shower Showering/Bathing, Other: Keep the dressing in place with showering. Wound/Incision Care: Keep Operative Site/Wound Site Clean and Dry, Do NOT Change Dressing Notify Provider of: Fever, Increased Pain, Swelling and Redness, Drainage, Nausea and/or Vomiting Other/Special Instructions: Please get up and moving around every hour while awake. Please use your walker and have help as needed. Take the blood thinner medication - Xarelto - daily. Do the exercises you were taught in the Hospital. Schedule for P.T. Use the pain medication as needed. The medication may cause drowsiness and constipation. Contact your primary care provider for instructions if you are constipated. You may use a stool softener like docusate sodium or Colace 100mg twice daily and/or a laxative like Miralax daily for constipation. Use the ice machine often. Elevate the limb to decrease swelling. Keep the Mepilex dressing in place until follow-up at the Clinic. Notify the Clinic if the dressing is saturated. Wear the RICARDO hose during the day and you may remove these at night. Schedule an appointment with your primary care provider for 'routine post-op care'. Call the Clinic with questions or concerns - [phone]. - Discharge Plan Prescriptions/Med Rec: Acetaminophen/oxyCODONE [Percocet 325-5 MG] 1 - 2 tab PO Q4H PRN #60 tablet PRN Reason: Pain Nitrofurantoin [place]/Macrocryst [Macrobid] 100 mg PO BID #14 cap Rivaroxaban [Xarelto] 10 mg PO DAILY #13 tablet Tamsulosin [Flomax] 0.4 mg PO BID #20 cap.er Home Medications: Home Meds Aspirin/Calcium Carbonate/Mag [Aspirin Buffered 325 mg Tab] 162 mg PO DAILY 02/03 [History] Ergocalciferol (Vitamin D2) [Vitamin D] 400 units PO DAILY 01/20/17 [History] Levothyroxine [Synthroid] 100 mcg PO DAILY 01/20/17 [History] Losartan/Hydrochlorothiazide [Losartan-HCTZ 100-25 MG] 1 tab PO DAILY 01/20/17 [ History] Metoprolol Succinate 25 mg PO DAILY 01/20/17 [History] Nitroglycerin [Nitrostat] 1 tab SL ASDIRECTED PRN 01/20/17 [History] Turmeric Root Extract [Turmeric] 500 mg PO DAILY 01/20/17 [History] atorvaSTATin [Lipitor] 80 mg PO DAILY 01/20/17 [History] Acetaminophen/oxyCODONE [Percocet 325-5 MG] 1 - 2 tab PO Q4H PRN #60 tablet 06/05 [Rx] Nitrofurantoin [place]/Macrocryst [Macrobid] 100 mg PO BID #14 cap 01/24/17 [Rx] Rivaroxaban [Xarelto] 10 mg PO DAILY #13 tablet 01/24/17 [Rx] Tamsulosin [Flomax] 0.4 mg PO BID #20 cap.er 01/24/17 [Rx] Patient Handouts: Rivaroxaban oral tablets, Total Knee Replacement, Care After , [id number], Preston Catheter Care, Adult, [id number], Total Knee Replacement , [id number], Knee Rehabilitation Guidelines Following Surgery, Acute Urinary Retention, Male, [id number] Referrals: Mona Combs MD [Primary Care Provider] - (Dr. Combs will call you with appointment time. Plan to see in 2-3 days) Leanna Pena PA-C [Physician Industrial Accountant] - - Patient Data Vitals - Most Recent: Last Vital Signs Temp 99.5 F 01/24/17 11:04 Pulse 79 01/24/17 11:04 Resp 16 01/24/17 11:04 BP 124/65 01/24/17 11:04 Pulse Ox 98 01/24/17 11:04 Weight - Most Recent: 185 lb 1.6 oz I&O - Last 24 hours: Intake & Output 01/24/17 01/24/17 01/24/17 06:59 14:59 22:59 Intake Total 950 200 Output Total 200 850 Balance 750 -650 Lab Results - Last 24 hrs: Laboratory Results - last 24 hr 01/24/17 01/24/17 Range/Units 05:54 05:54 WBC 8.18 (4.23-9.07) K/mm3 RBC 3.95 L (4.63-6.08) M/mm3 Hgb 10.9 L (13.7-17.5) gm/L Hct 34.3 L (40.1-51.0) % MCV 86.8 (79.0-92.2) fl MCH 27.6 (25.7-32.2) pg MCHC 31.8 L (32.2-35.5) g/dl RDW Std Deviation 41.8 (35.1-43.9) fL Plt Count 159 L (163-337) K/mm3 MPV 10.5 (9.4-12.3) fl Neut % (Auto) 69.7 H (34.0-67.9) % Lymph % (Auto) 13.3 L (21.8-53.1) % [place] % (Auto) 13.0 H (5.3-12.2) % Eos % (Auto) 3.5 (0.8-7.0) Baso % (Auto) 0.4 (0.1-1.2) % Neut # 5.70 H (1.78-5.38) K/mm3 Lymph # 1.09 L (1.32-3.57) K/mm3 [place] # 1.06 H (0.30-0.82) K/mm3 Eos # 0.29 (0.04-0.54) K/mm3 Baso # 0.03 (0.01-0.08) K/mm3 Sodium 136 (136-145) mEq/L Potassium 4.5 (3.5-5.1) mEq/L Chloride 103 (98-107) mEq/L Carbon Dioxide 28 (21-32) mEq/L Anion Gap 9.5 (5-15) BUN 22 H (7-18) mg/dL Creatinine 0.9 (0.7-1.3) mg/dL Est Cr Clr Drug Dosing 71.87 mL/min Estimated GFR (MDRD) > 60 (>60) mL/min BUN/Creatinine Ratio 24.4 H (14-18) Glucose 104 (80-115) mg/dL Calcium 8.4 L (8.5-10.1) mg/dL Total Bilirubin 0.6 (0.2-1.0) mg/dL AST 21 (15-37) U/L ALT 22 (16-63) U/L Alkaline Phosphatase 58 (46-116) U/L Total Protein 5.7 L (6.4-8.2) g/dl Albumin 2.9 L (3.4-5.0) g/dl Globulin 2.8 gm/dL Albumin/Globulin Ratio 1.0 (1-2) Med Orders - Current: Current Medications Bisacodyl (Dulcolax) 5 mg PO DAILY PRN PRN Reason: Constipation Cyclobenzaprine HCl (Flexeril) 10 mg PO TID PRN PRN Reason: Spasms Diphenhydramine HCl (Benadryl) 25 mg IVPUSH Q4H PRN PRN Reason: Nausea Last Admin: 01/23/17 09:29 Dose: 25 mg Docusate Sodium (Colace) 100 mg PO BID SHASHANK Last Admin: 01/24/17 08:59 Dose: 100 mg Famotidine (Pepcid) 20 mg PO Q12H [facility] Last Admin: 01/24/17 08:59 Dose: 20 mg Hydrochlorothiazide (Hydrochlorothiazide) 25 mg PO DAILY [facility] Last Admin: 01/24/17 08:58 Dose: 25 mg Levothyroxine Sodium (Synthroid) 100 mcg PO DAILY [facility] Last Admin: 01/24/17 08:58 Dose: 100 mcg Losartan Potassium (Cozaar) 100 mg PO DAILY [facility] Last Admin: 01/24/17 08:58 Dose: 100 mg Magnesium Hydroxide (Milk Of Magnesia) 30 ml PO BID PRN PRN Reason: Constipation Metoprolol Succinate (Toprol Xl) 25 mg PO DAILY [facility] Last Admin: 01/24/17 08:56 Dose: 25 mg Morphine Sulfate (Morphine) 2 mg IVPUSH Q2H PRN PRN Reason: Breakthrough Pain Multivitamins (Thera) 1 each PO WITHBREAKFAST [facility] Last Admin: 01/24/17 07:43 Dose: 1 each Nitroglycerin (Nitrostat) 0.4 mg SL ASDIRECTED PRN PRN Reason: Chest Pain Ondansetron HCl (Zofran) 4 mg IVPUSH Q6H PRN PRN Reason: Nausea/Vomiting Oxycodone/Acetaminophen (Percocet 325-5 Mg) 1 - 2 tab PO Q4H PRN PRN Reason: Pain Last Admin: 01/24/17 15:48 Dose: 2 tab Ergocalciferol ( Vitamin D2) [Vitamin D] 1 Tab 0 each PO DAILY [facility] Last Admin: 01/24/17 09:19 Dose: Not Given Rivaroxaban (Xarelto) 10 mg PO DAILY [facility] Last Admin: 01/24/17 08:57 Dose: 10 mg Rosuvastatin Calcium (Crestor) 20 mg PO DAILY [facility] Last Admin: 01/24/17 09:19 Dose: Not Given Senna (Senna) 8.6 mg PO BID PRN PRN Reason: Constipation Sodium Chloride (Saline Flush) 10 ml FLUSH ASDIRECTED PRN PRN Reason: Keep Vein Open Tamsulosin HCl (Flomax) 0.4 mg PO DAILY [facility] Last Admin: 01/24/17 08:57 Dose: 0.4 mg Discontinued Medications Bupivacaine HCl (Marcaine 0.25%) Confirm Administered Dose [address] Stop: 01/23/17 09:13 Last Admin: 01/23/17 11:16 Dose: 30 ml Cefazolin Sodium (Ancef) Confirm Administered Dose 2 gm .ROUTE .[facility] ONE Stop: 01/23/17 09:13 Last Admin: 01/23/17 11:11 Dose: 2 gm Cefazolin Sodium (Ancef) Confirm Administered Dose 1 gm .ROUTE .[facility] ONE Stop: 01/23/17 09:41 Cefazolin Sodium (Ancef) Confirm Administered Dose 1 gm .ROUTE .[facility] ONE Stop: 01/23/17 09:41 Morphine Sulfate 8 mg/Epinephrine HCl 0.3 mg/Cefuroxime Sodium 750 mg/Ketorolac Tromethamine 30 mg/Sodium Chloride 27.9 ml 0 mg .XX ONETIME ONE Stop: 01/23/17 10:16 Last Admin: 01/23/17 19:33 Dose: Not Given Ephedrine Sulfate (Ephedrine Sulfate) 5 mg IVPUSH ASDIRECTED PRN PRN Reason: Hypotension Stop: 01/23/17 18:00 Fentanyl (Sublimaze) 50 mcg IVPUSH Q5M PRN PRN Reason: Pain Stop: 01/23/17 12:01 Hydromorphone HCl (Dilaudid) 0.5 mg IVPUSH Q15M PRN PRN Reason: severe pain Stop: 01/23/17 12:01 Lactated Ringer's (Ringers, Lactated) 1,000 mls @ 125 mls/hr IV ASDIRECTED [facility] Last Infusion: 01/23/17 17:58 Dose: 999 mls/hr Cefazolin Sodium/Dextrose 2 gm (/ Premix) 50 mls @ 100 mls/hr IV Q8H [facility] Stop: 01/24/17 10:14 Last Admin: 01/24/17 09:04 Dose: 100 mls/hr Lactated Ringer's (Ringers, Lactated) Confirm Administered Dose 1,000 mls @ as directed .ROUTE .[facility] ONE Stop: 01/23/17 10:56 Lactated Ringer's (Ringers, Lactated) 1,000 mls @ 125 mls/hr IV ASDIRECTED [facility] Stop: 01/23/17 20:16 Last Admin: 01/23/17 18:10 Dose: 999 mls/hr Lactated Ringer's (Ringers, Lactated) 500 mls @ 999 mls/hr IV .[facility] ONE Stop: 01/23/17 19:04 Last Admin: 01/23/17 18:43 Dose: Not Given Iodine (Iodine 2% Mild Tincture) Confirm Administered Dose 30 ml .ROUTE .[facility]- MED ONE Stop: 01/23/17 09:13 Last Admin: 01/23/17 11:07 Dose: 18 ml Ketorolac Tromethamine (Toradol) 15 mg IVPUSH Q8H PRN PRN Reason: Pain Stop: 01/23/17 13:01 Lidocaine/Sodium Bicarbonate (Buffered Lidocaine 1% In Ns 8.4%) 0.25 ml IV ONETIME PRN PRN Reason: Prior to IV Start Stop: 01/23/17 18:00 Midazolam HCl (Versed 1 Mg/Ml) Confirm Administered Dose 2 mg .ROUTE .[facility] ONE Stop: 01/23/17 08:22 Morphine Sulfate (Duramorph Pf) Confirm Administered Dose 10 mg .ROUTE .[facility] ONE Stop: 01/23/17 09:40 Naloxone HCl (Narcan) 0.1 mg IVPUSH Q5M PRN PRN Reason: Oversedation Stop: 01/23/17 12:16 Ondansetron HCl (Zofran) 4 mg IVPUSH ONETIME PRN PRN Reason: Nausea/Vomiting Stop: 01/23/17 18:00 Ondansetron HCl (Zofran) Confirm Administered Dose 4 mg .ROUTE .[facility] ONE Stop: 01/23/17 10:53 Propofol (Diprivan 20 Ml) Confirm Administered Dose 200 mg .ROUTE .[facility] ONE Stop: 01/23/17 08:20 Propofol (Diprivan 20 Ml) Confirm Administered Dose 200 mg .ROUTE .STK-MED ONE Stop: 01/23/17 10:44 Tranexamic Acid (Cyklokapron) Confirm Administered Dose 1,000 mg .ROUTE .STK- MED ONE Stop: 01/23/17 09:13 Last Admin: 01/23/17 11:23 Dose: 1,000 mg *Q Meaningful Use (DIS) - VTE *Q VTE Criteria *Q: - Stroke *Q Stroke Criteria *Q: - AMI *Q AMI Criteria *Q:
== END 2017-01-24 15:28 | disposition home or self-care (01) | DRG 470 ==
LOC: JD.OB 08:38 → JD.MS 01-24 15:28 → UNDODISIN 01-24 15:30
PROVIDERS: ADMIT Orthopaedic Surgery; ATTEND Orthopaedic Surgery
PROC: 0SRC0J9 Replacement of Right Knee Joint with Synthetic Substitute, Cemented, Open Approach (ICD-10-PCS; principal; 2017-01-23)
DX: M17.11 Unilateral primary osteoarthritis, right knee (principal); I25.10 Atherosclerotic heart disease of native coronary artery without angina pectoris; I10 Essential (primary) hypertension; Z95.5 Presence of coronary angioplasty implant and graft; E78.00 Pure hypercholesterolemia, unspecified; E03.8 Other specified hypothyroidism; Z79.82 Long term (current) use of aspirin; Z79.899 Other long term (current) drug therapy
CPT/HCPCS: 01402; 36415; 73560-26-RT; 73560-RT; 80053; 85025; 87641; 94762; 97110-GP; 97116-GP; 97161-GP; 97165-GO; 97535-GO; 99232; A9270-GY; C1713; C1776; J0171; J0690; J0697; J1200; J1885; J2250; J2270; J2405; J2704; J3490; J7120

== ENCOUNTER 2022-08-10 07:23 | Day surgery (SDC) | payer MEDICARE, OTHER ==
[~2022-08-10 07:23] MED LIST changes: +Lactated Ringers 1,000 ML IV SCH; +Lidocaine 1%/Sod Bicarbonate in NS 8.4% 1 ML Syringe IDERM PRN; -Lidocaine 1%/Sod Bicarbonate in NS 8.4% 1 ML Syringe IV PRN; -Midazolam 1 MG/ML 2 ML SDV ONE; -Propofol 200 MG/20 ML SDV ONE; +Sodium Chloride 0.9% 10 ML Syringe FLUSH SCH
[2022-08-10] MEDS ORDERED: fentaNYL 100 MCG/2 ML SDV ONE (08:57)
[2022-08-10] MEDS ORDERED: Propofol 200 MG/20 ML SDV ONE (08:58)
[2022-08-10] MEDS ORDERED: Midazolam 1 MG/ML 2 ML SDV ONE (08:58)
[2022-08-10 11:05] VITALS: BP 106/76; PULSE 57
== END 2022-08-10 11:30 | disposition home or self-care (01) ==
LOC: JD.SDS 07:23
PROVIDERS: ATTEND Surgery
DX: D12.4 Benign neoplasm of descending colon (principal); K62.1 Rectal polyp; D12.2 Benign neoplasm of ascending colon; D50.9 Iron deficiency anemia, unspecified; K44.9 Diaphragmatic hernia without obstruction or gangrene; K21.9 Gastro-esophageal reflux disease without esophagitis; K57.30 Diverticulosis of large intestine without perforation or abscess without bleeding; K64.9 Unspecified hemorrhoids; I25.10 Atherosclerotic heart disease of native coronary artery without angina pectoris; D69.6 Thrombocytopenia, unspecified; I10 Essential (primary) hypertension; E78.5 Hyperlipidemia, unspecified; E03.9 Hypothyroidism, unspecified; E78.00 Pure hypercholesterolemia, unspecified; Z98.890 Other specified postprocedural states; Z79.899 Other long term (current) drug therapy; Z87.891 Personal history of nicotine dependence
CPT/HCPCS: 43239; 45380; J2250; J2704; J3010; J7120; 00813; 88305; 88342